=== PATIENT | male | born 1995 | race African-American/Black ===

== ENCOUNTER 2016-09-14 23:03 | Emergency (ER) | payer SELFPAY ==
[~2016-09-14] VITALS: Ht 182.9 cm; Wt 85.0 kg
[2016-09-15 01:40] VITALS: BP 121/63
== END 2016-09-15 01:40 | disposition home or self-care (01) ==
LOC: EME 23:03
DX: F32.9 Major depressive disorder, single episode, unspecified (principal)
CPT/HCPCS: 90837; 99281; 99283

== ENCOUNTER 2017-11-03 23:49 | Emergency (ER) | payer SELFPAY ==
[~2017-11-03] VITALS: Ht 185.4 cm; Wt 89.4 kg
[2017-11-04 00:06] LABS: HEMATOCRIT 41.8 % (38.0-50.0); HEMOGLOBIN 13.9 G/DL (12.5-16.6); MCH 25.9 PG (29.0-34.0); MCHC 33.3 G/DL (30.0-36.0); PLATELET COUNT 180 K/uL (156-360); RBC DIS.WIDTH-CV 13.3 % (11.8-14.6); RBC DIS.WIDTH-SD 37.8 % (39-53); RED BLOOD COUNT 5.36 M/uL (4.00-5.50); WHITE BLOOD COUNT 8.6 K/uL (4.1-10.2)
[2017-11-04 00:18] LABS: CHLORIDE 105 mEq/L (99-109); POTASSIUM 3.8 mEq/L (3.7-5.4); SODIUM 142 mEq/L (136-147)
[2017-11-04 00:20] LABS: GLUCOSE 90 mg/dL (70-99)
[2017-11-04 00:25] LABS: CREATININE 1.3 mg/dL (0.6-1.3); GFR ESTIMATE (CALCULATED) > 59 mL/min/ (58.99-99999); UREA NITROGEN (BUN) 13 mg/dL (9-23)
[2017-11-04 00:32] LABS: TROP-I INTERPRETATION NEGATIVE; TROPONIN-I 0.01 ng/mL (0.0-0.30)
[2017-11-04 00:36] LABS: D-DIMER ELISA < 150.00 ng/mLDDU (<230)
[2017-11-04] MEDS ORDERED: NAPROSYN500 MG PO (01:25)
[2017-11-04 01:37] VITALS: BP 110/58
== END 2017-11-04 01:38 | disposition home or self-care (01) ==
LOC: EME 23:49
DX: R07.89 Other chest pain (principal); R09.1 Pleurisy; Z83.2 Family history of diseases of the blood and blood-forming organs and certain disorders involving the immune mechanism; Z53.29 Procedure and treatment not carried out because of patient's decision for other reasons
CPT/HCPCS: 71046; 80048; 84484; 85027; 85379; 93005; 99281; 99282